=== PATIENT | female | born 1955 | race Caucasian/White ===

== ENCOUNTER → 2017-07-22 16:26 | Outpatient (CLI) | payer OTHER, SELFPAY ==
--- NOTE | 2017-07-22 | MM_ITS ---
MM Dig screening mamm BI w/CAD CAD Screening COMPARISON: Digital mammograms 01/30/2010 INDICATION: There is no personal or family history of breast cancer. There has been a previous biopsy left breast. TECHNIQUE: Standard CC and MLO images were obtained. R2 CAD reviewed. FINDINGS: Scattered fiber glandular densities are seen in both breasts. There is a biopsy clip upper outer quadrant left breast. There are scattered benign-appearing calcination is in each breast. There is no suspicious lesion and there are no suspicious microcalcifications. IMPRESSION: Fibrofatty parenchyma no suspicious lesion seen BI-RADS Category: 2 Benign Finding(s) RECOMMENDED FOLLOW-UP: 1YR - 1 YEAR FOLLOW-UP (A letter has been sent to the patient regarding results of the study.)
== END ==
PROVIDERS: PCP Family Medicine; Visit Provider Family Medicine
DX: Z12.31 Encounter for screening mammogram for malignant neoplasm of breast (principal)
CPT/HCPCS: 77067

== ENCOUNTER → 2019-06-16 17:42 | Outpatient (CLI) | payer BC, SELFPAY ==
--- NOTE | 2019-06-16 17:52 | XR_ITS ---
PROCEDURE: XR HIP RT 2-3V W/PELVIS CLINICAL INDICATION: UNSTABLE RIGHT HIP Pain COMPARISON: No exams were available for comparison FINDINGS: No fracture or dislocation is evident. No significant degenerative change. No lytic or blastic change. Unremarkable soft tissues. IMPRESSION: No acute findings. Dictated by: Manuel Smith MD 06/16/2019 21:37 Electronically signed by Manuel Smith MD in [place] 06/16/2019 21:37
--- NOTE | 2019-06-16 17:52 | XR_ITS ---
PROCEDURE: XR LUMBAR SPINE MIN 4V CLINICAL INDICATION: ACUTE RIGHT SIDED LOW BACK PAIN Right-sided low back pain COMPARISON: CT ABDOMEN PELVIS WO CON from 11/24/2018 FINDINGS: Normal alignment. Multilevel degenerative disc disease from L1-S1. There is partial sacralization of L5. No fracture or dislocation. There is generalized vascular calcification. There is mild posterior angulation of the coccyx which could be due to an old injury and did appear to be present on a previous CT scan. There are facet arthritic changes and L3-L4 and L5 IMPRESSION: Degenerative changes, no acute finding. Dorsal angulation of the coccyx consistent with an old injury Dictated by: Manuel Smith MD 06/16/2019 21:36 Electronically signed by Manuel Smith MD in [place] 06/16/2019 21:36
== END ==
PROVIDERS: PCP Nurse Practitioner Family; Visit Provider Nurse Practitioner Family
DX: M54.41 Lumbago with sciatica, right side (principal); M25.351 Other instability, right hip
CPT/HCPCS: 72110; 73502

== ENCOUNTER → 2019-06-20 10:55 | Outpatient (CLI) | payer BC, SELFPAY ==
[2019-06-20 11:41] LABS: Chloride 94 mmol/L (98-107); Potassium 4.4 mmoL/L (3.5-5.1); Sodium 131 mmol/L (136-145)
[2019-06-20 11:44] LABS: Alanine Aminotransferase 32 U/L (12-78); Albumin Level 3.9 g/dl (3.5-5.0); Albumin/Globulin Ratio 1.3 (1.1-1.8); Alkaline Phosphatase 69 U/L (38-126); Anion Gap 14.4 mEq/L (5-15); Aspartate Amino Transferase 19 U/L (14-36); Bilirubin,Total 0.9 mg/dl (0.2-1.3); Blood Urea Nitrogen 26 mg/dl (7-17); Carbon Dioxide 27 mmol/L (22.0-30.0); Estimated Glomerular Filt Rate 56 ml/min (>60); GFR (African American) 68 ML/MIN (>60); Globulin 3.1 g/dL (1.3-3.2)
[2019-06-20 11:45] LABS: Calcium 9.5 mg/dl (8.4-10.2); Glucose 223 mg/dl (74-100)
[2019-06-20 12:41] LABS: Basophils % 1.1 % (0.1-2.0); Eosinophils % 0.2 % (0.1-12.0); Hematocrit 43.3 % (37.0-47.0); Mean Corpuscular HGB Conc 32.3 g/dL (31.8-35.4); Mean Corpuscular Hemoglobin 31.1 pg (27.0-31.2); Mean Corpuscular Volume 96.4 fl (81-99); Mean Platelet Volume 7.3 fl (7.4-10.4); Monocytes % 7.7 % (1.7-9.3); Platelet Count 303 K/mm3 (142-424); Red Blood Count 4.49 M/mm3 (4.20-5.40); Red Cell Distribution Width 14.2 % (11.5-17.5); White Blood Count 9.5 K/mm3 (4.8-10.8)
[2019-06-20 12:42] LABS: Basophils # 0.1 K/mm3 (0-0.2); Lymphocytes # 0.9 K/mm3 (0.7-4.5); Monocytes # 0.7 K/mm3 (0.1-1.0); Neutrophils # 7.8 K/mm3 (1.8-7.8)
[2019-06-22 10:59] LABS: Hemoglobin A1C 6.9 % (4.0-6.0)
== END ==
PROVIDERS: Visit Provider Nurse Practitioner Family
DX: N12 Tubulo-interstitial nephritis, not specified as acute or chronic (principal)
CPT/HCPCS: 36415; 80053; 83036; 85025

== ENCOUNTER → 2019-07-20 08:08 | Outpatient (CLI) | payer BC, SELFPAY ==
--- NOTE | 2019-07-20 08:08 | CT_ITS ---
PROCEDURE: CT ABDOMEN PELVIS WO CON CLINICAL INDICATION: NEPHROLITHIASIS Right flank pain, history of kidney stones COMPARISON: CT ABDOMEN PELVIS WO CON from 11/24/2018 TECHNIQUE: Axial images obtained with sagittal and coronal reformats. All CT scans at the facility use one or more dose reduction, viz: automated exposure control, ma/kV adjustment per patient size (including targeted exams where dose is matched to indication, i.e. head), or iterative reconstruction technique. FINDINGS: LOWER THORAX: There is a stable 6 mm nodule in the right middle lobe. Calcified nodule is present in the right lower lobe with underlying fibrotic changes/scarring. Coronary artery calcifications present ABDOMEN & PELVIS:There is mild thickening of the distal esophagus which is nonspecific. The the the liver, spleen, adrenal glands, and pancreas have an unremarkable unenhanced CT appearance. There are nonobstructing bilateral renal calculi measuring up to 5 mm in the lower pole on the right and 8 mm in the lower pole on the left. There is a 5 mm stone at the right ureterovesical junction with mild right-sided hydronephrosis and hydroureter. There are multiple pelvic phleboliths present. No evidence of appendicitis. Scattered diverticula are present throughout the colon. No evidence of diverticulitis. No pelvic mass or abnormal fluid collection. There is mild dilatation of the mid abdominal aorta at 2.2 cm. There is scattered small nodes in the retroperitoneum There is subcortical sclerosis involving the femoral heads on both sides right more extensive limb left having a somewhat geographic pattern consistent with avascular necrosis of the femoral heads IMPRESSION: 1. 8 mm right ureterovesical junction stone with mild right-sided obstructive uropathy 2. Bilateral nephrolithiasis 3. Bilateral avascular necrosis of the hips 4. Colonic diverticulosis without diverticulitis Dictated by: Manuel Smith MD 07/20/2019 14:59 Electronically signed by Manuel Smith MD in [place] 07/20/2019 14:59
== END ==
PROVIDERS: PCP Nurse Practitioner Family; Visit Provider Urology
DX: N20.0 Calculus of kidney (principal)
CPT/HCPCS: 74176

== ENCOUNTER → 2019-07-25 14:25 | Outpatient (CLI) | payer BC, SELFPAY ==
--- NOTE | 2019-07-25 14:29 | XR_ITS ---
PROCEDURE: XR KUB CLINICAL INDICATION: URETERAL STONE Right-sided abdominal pain COMPARISON: CT ABDOMEN PELVIS WO CON from 07/20/2019 FINDINGS: There are bilateral renal calculi measuring up to 3 mm in the lower pole on the right and 9 mm in the lower pole on the left. There are multiple bilateral lower pelvic calcifications noted most of which are felt to be due to phleboliths. The cannot exclude the possibility of a persistent ureteral calculus on the right due to multiple overlying calcifications. The there are degenerative changes in the lumbar spine and SI joints. IMPRESSION: Bilateral nephrolithiasis with bilateral pelvic calcification. Cannot exclude a distal ureteral stone on the right as there are multiple calcifications in this region Dictated by: Manuel Smith MD 07/25/2019 15:14 Electronically signed by Manuel Smith MD in [place] 07/25/2019 15:14
== END ==
PROVIDERS: PCP Family Medicine; Visit Provider Urology
DX: N20.1 Calculus of ureter (principal)
CPT/HCPCS: 74018

== ENCOUNTER → 2019-08-11 08:12 | Outpatient (CLI) | payer BC, SELFPAY ==
[2019-08-11 08:51] LABS: Basophils % 0.4 % (0.1-2.0); Eosinophils # 0.2 K/mm3 (0.0-0.4); Eosinophils % 4.6 % (0.1-12.0); Hematocrit 38.9 % (37.0-47.0); Lymphocytes # 2.2 K/mm3 (0.7-4.5); Lymphocytes % 42.3 % (10-50); Mean Corpuscular HGB Conc 33.4 g/dL (31.8-35.4); Mean Corpuscular Hemoglobin 32.8 pg (27.0-31.2); Mean Corpuscular Volume 98.2 fl (81-99); Mean Platelet Volume 7.9 fl (7.4-10.4); Monocytes # 0.3 K/mm3 (0.1-1.0); Monocytes % 6.5 % (1.7-9.3); Neutrophils # 2.3 K/mm3 (1.8-7.8); Neutrophils % 46.2 % (37.0-80.0); Platelet Count 235 K/mm3 (142-424); Red Blood Count 3.96 M/mm3 (4.20-5.40); Red Cell Distribution Width 15.1 % (11.5-17.5); White Blood Count 5.1 K/mm3 (4.8-10.8)
[2019-08-11 09:47] LABS: Anion Gap 12.6 mEq/L (5-15); Blood Urea Nitrogen 19 mg/dl (7-17); Calcium 9.7 mg/dl (8.4-10.2); Carbon Dioxide 29 mmol/L (22.0-30.0); Chloride 102 mmol/L (98-107); Estimated Glomerular Filt Rate 85 ml/min (>60); GFR (African American) 103 ML/MIN (>60); Glucose 122 mg/dl (74-100); Potassium 4.6 mmoL/L (3.5-5.1); Sodium 139 mmol/L (136-145)
[2019-08-11 10:03] LABS: Coronavirus 19 IgG Antibody Negative (Negative); Coronavirus 19 IgM Antibody Negative (Negative)
== END ==
PROVIDERS: Visit Provider Urology
DX: Z01.84 Encounter for antibody response examination (principal); Z01.818 Encounter for other preprocedural examination
CPT/HCPCS: 36415; 80048; 85025; 86328

== ENCOUNTER 2019-08-14 07:07 | Day surgery (SDC) | payer BC, SELFPAY ==
[2019-08-09 11:08] VITALS: BMI 32.5
[2019-08-14] VITALS (13 sets, daily range): BP systolic 123–152; BP diastolic 60–85; PULSE 51–73; RESP 14–24; TEMP 36–36.7; O2SAT 92–100
[2019-08-14 07:46] LABS: POC Glucose,Bedside 122 (70-110)
--- NOTE | 2019-08-14 07:52 | P.PN_ITS ---
[facility] Anesthesia Checklist - Patient Identification Patient Identification: Arm Band, Verbal (Name & ) - Structural Data Admitted From: Home Planned Operative Procedure/s: Bilateral ureteroscopy, stone extraction, holmium laser Consent for Planned Operative Procedure(s) Verified: Yes Verified Documents: Surgical Consent, History and Physical - NPO Status Verified Time NPO: 22:30 - Chart Verification Results Verified: CBC, BMP, UA - Additional verifications Anesthesia Reactions: No Hx Blood Transfusions: No Blood Transfusion Reaction: No - Airway Assessment C-Spine Mobility Assessed: Yes TMJ Mobility Assessed: Yes Dentition: Poor Dentition (missing) - Neurological Assessment Level of Consciousness: Awake, Alert, Appropriate, Follows Commands Hx Seizures: No Numbness or tingling in extremities: No - Anesthesia Plan Anesthesia Risk discussed: Yes Anesthesia Plan: Verified ASA Class: III Anesthesia Type: General [facility] History I have reviewed the patient's past medical history: Yes Medical History: Reports:: Anxiety, Deep Vein Thrombosis, Diabetes Mellitus Type 2, Hyperlipidemia, Hypertension Denies:: Cancer, Depression, Diabetes Mellitus Type 1, Internal Pacemaker, Migraine, MRSA, Seizures *Have you ever received a pneumonia vaccine?: No *Have you received a flu vaccine this season?: No Other Medical History: Reports: Arthritis, Sinus Problems. Denies: Blood Transfusion Reaction Anesthesia experience/problems:: None Laterality Cases: Left: Breast Biopsy Other Surgeries: Yes: Tubal Ligation, Other. No: Pacemaker Amputation: No Fractures: No - *Social History Educational Level: Attended College Smoking Status: Current every day smoker Tobacco Type: cigarettes # Packs/Day (cigarettes): 1 Alcohol Intake: never Alcohol Intake Frequency:: other Substance Use Type: denies use *Occupational Status:: employed Housing: house Household Members: spouse *Travel in the last 8 weeks: None - Psychiatric History Pschychiatric History:: Reports:: Anxiety Denies:: Depression Family Hx:: Anemia, Cancer, Coronary Artery Disease, Diabetes, Hyperlipidemia, Hypertension, Kidney Disease, Mental illness
--- NOTE | 2019-08-14 10:30 | FL_ITS ---
PROCEDURE: FLUORO UP TO 1 HOUR CLINICAL INDICATION: URETEROSCOPY WITH STENT PLACEMENT IN OR COMPARISON: XR KUB from 07/25/2019 FINDINGS: Fluoroscopy time: 1 minutes and 46 seconds A single images submitted showing a stent in place with the proximal aspect overlying the right upper quadrant IMPRESSION: Status post stent placement with C-arm guidance Dictated by: Manuel Smith MD 08/14/2019 17:44 Electronically signed by Manuel Smith MD in [place] 08/14/2019 17:44
--- NOTE | 2019-08-14 10:41 | HMH.ANESI ---
[facility] Anesthesia Record Part I Intake, IV Amount: 900 Estimated blood loss (mL): 10 Urine output (mL): 0 Blood Products used (#): none Blood Pressure: 123/64 SaO2: 93 Pulse Rate: 62 Respiratory Rate: 18 Temperature: 98.0 F Patient is:: Drowsy, Stable Stable to PACU at:: 10:38
--- NOTE | 2019-08-14 11:36 | HMH.ANESII ---
[facility] Anesthesia Record Part II Discharge Time: 11:08 Destination: Surgical Day Care (OP Surgery) PACU nurse assessment reviewed?: Yes Patient Condition:: Good Anesthesia Complications:: None Swallowing reflex intact?: Yes Cyanosis?: No Blood Pressure: 152/80 Pulse Rate: 51 Temperature: 97.6 F Mental Status: Alert & Oriented Pain level:: 0 Nausea and/or vomitting:: None Intake, IV Amount: 25
[2019-08-14 11:49] LABS: POC Glucose,Bedside 103 (70-110)
--- NOTE | 2019-08-14 16:45 | HMH.OPNOTE ---
Date of procedure: 08/14/19 Pre-op Diagnosis:: Right distal ureteral stone and left proximal ureteral stone Post-op Diagnosis:: Same Procedure performed:: Right ureteroscopy, laser lithotripsy, stone extraction and right stent placement. Left ureteroscopy and stone extraction Surgeon:: Bubba Vee MD [employer] ORIGINATOR:: Arsenio Holden Anesthesia: GETA Estimated blood loss (mL): 0 Clinical Note:: Patient with history of a recurring urinary tract infections. She has persistent right distal ureteral stone and left proximal ureteral stone and it is believed that the stones are creating a recurrent infections she presents for definitive management today. Operative findings:: Impacted right distal ureteral stone and small left proximal ureteral stone Operative note:: Patient taken to the operating room after informed consent was obtained. She was placed on the operating table in the supine position and general anesthesia administered. Preoperative antibiotics and sequential compression devices placed. She was then placed into the dorsal lithotomy position prepped draped in the standard surgical fashion. The 22 Den passed into the urethra and into the bladder. The bladder was examined in a systematic fashion there is no evidence of mucosal abnormalities stones diverticula or trabeculation. The right trigone seems a little swollen. A guidewire was passed through the scope and into the right ureteral orifice but there was some resistance passing it by the offending stone. After some manipulation we were able to slide it by the stone into the right renal pelvis noted under fluoroscopy. The cystoscope removed and the right distal ureter appeared small so it was dilated with the 4 x 15 UroMax balloon dilator to 12 delon for 2 minutes. Balloon then deflated and removed and our semirigid ureteroscope passed into the bladder and into the right ureter and up to the distal stone. Stone was impacted against the lateral wall and could not be removed in 1 piece. We then used a 200 nm laser fiber to pass through the scope and the stone was broken up into several small fragments and the stone basket was used to remove all the smaller stone fragments. All stone was removed. Due to the impaction and swelling at that point I thought it best to place a ureteral stent and a 6 x 24 [place] stent was passed over the guidewire and the guidewire removed. We then turned our attention to the patient's left side and the guidewire was passed into the left ureter with use of the cystoscope. The cystoscope removed and the ureteroscope was replaced and into the left ureteral orifice. There were a couple small calculi in the left distal ureter these were removed with the basket. Passed the stone all the way proximally to the kidney and a couple more small stones were noted in the left proximal ureter and these were extracted with the basket as well. The scope was removed and I did not feel a need to place a stent on the left side. Bladder was drained. The patient tolerated procedure well no complications. She is discharged to recovery in stable condition. Condition: stable Disposition: PACU Specimens:: Stones were evacuated into the bladder and none were sent off as a specimen. Complications:: None
== END 2019-08-14 11:55 | disposition home or self-care (01) ==
LOC: OR 07:11
PROVIDERS: PCP Family Medicine; Visit Provider Urology
PROC: (CPT 52352; principal; 2019-08-14 09:00)
DX: N20.1 Calculus of ureter (principal); E78.5 Hyperlipidemia, unspecified; I10 Essential (primary) hypertension; E10.9 Type 1 diabetes mellitus without complications; F41.9 Anxiety disorder, unspecified; Z79.82 Long term (current) use of aspirin; Z79.51 Long term (current) use of inhaled steroids; Z79.899 Other long term (current) drug therapy; I82.409 Acute embolism and thrombosis of unspecified deep veins of unspecified lower extremity
CPT/HCPCS: 52356; 76000; 82962; 96374; C2617; J2405; J2710; Q9967

== ENCOUNTER → 2019-08-18 11:03 | Outpatient (CLI) | payer BC, SELFPAY ==
--- NOTE | 2019-08-18 11:19 | XR_ITS ---
PROCEDURE: XR KUB CLINICAL INDICATION: ureteral stone COMPARISON: CT ABDOMEN PELVIS WO CON from 07/20/2019 FINDINGS: There are few mildly dilated loops of small bowel right upper abdomen. There is minimal scattered stool in the visualized portion of the transverse colon. There is a right ureteral stent in place. There is a calcification lying immediately adjacent to the distal stent near the pigtail likely representing the stone seen at the UV junction on the recent CT scan abdomen and pelvis 07/20/2019. The right renal shadow is obscured by overlying large and small bowel gas but a tiny calculus likely remains in the mid pole. There appear to be 2-3 small calculi overlying the lower pole of the left renal shadow. There are tiny calcifications likely phleboliths left side of the pelvis. IMPRESSION: Bilateral renal calculi and probable persistent distal right ureteral calculus Dictated by: Dr. Arsh Goldsmith MD 08/18/2019 13:[address] Arsh Goldsmith MD in [place] 08/18/2019 13:14
== END ==
PROVIDERS: PCP Family Medicine; Visit Provider Urology
DX: N20.1 Calculus of ureter (principal)
CPT/HCPCS: 74018; 87086; 87088; 87186

== ENCOUNTER → 2019-08-18 12:34 | Outpatient (CLI) | payer BC, SELFPAY | PROVIDERS: Visit Provider Urology | DX: N39.0 Urinary tract infection, site not specified (principal) | CPT/HCPCS: 87086; 87088; 87186 ==

== ENCOUNTER 2019-08-18 19:22 | Emergency (ER) | payer OTHER, SELFPAY ==
[2019-08-18 19:25] VITALS: BMI 32.3
--- NOTE | 2019-08-18 19:25 | PC.NURSE ---
placed in ccollar.gown placed on patient.
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
[2019-08-18 19:30] VITALS: BP 101/72; PULSE 115; RESP 16; TEMP 36.8; O2SAT 95; BMI 32.3
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
[2019-08-18 19:51] LABS: Basophils % 0.2 % (0.1-2.0); Eosinophils # 0.1 K/mm3 (0.0-0.4); Eosinophils % 0.8 % (0.1-12.0); Hematocrit 35.3 % (37.0-47.0); Hemoglobin 12.3 g/dL (12.2-16.2); Lymphocytes # 1.4 K/mm3 (0.7-4.5); Lymphocytes % 19.8 % (10-50); Mean Corpuscular Hemoglobin 33.2 pg (27.0-31.2); Mean Corpuscular Volume 94.9 fl (81-99); Monocytes # 0.9 K/mm3 (0.1-1.0); Monocytes % 12.7 % (1.7-9.3); Neutrophils # 4.7 K/mm3 (1.8-7.8); Neutrophils % 66.5 % (37.0-80.0); Platelet Count 239 K/mm3 (142-424); Red Blood Count 3.72 M/mm3 (4.20-5.40); Red Cell Distribution Width 14.9 % (11.5-17.5)
[2019-08-18 19:52] LABS: Alanine Aminotransferase 25 U/L (12-78); Albumin Level 4.2 g/dl (3.5-5.0); Albumin/Globulin Ratio 1.2 (1.1-1.8); Alkaline Phosphatase 76 U/L (38-126); Anion Gap 13.4 mEq/L (5-15); Aspartate Amino Transferase 39 U/L (14-36); Bilirubin,Total 0.6 mg/dl (0.2-1.3); Blood Urea Nitrogen 28 mg/dl (7-17); Calcium 9.7 mg/dl (8.4-10.2); Carbon Dioxide 27 mmol/L (22.0-30.0); Chloride 94 mmol/L (98-107); Creatinine Clearance Estimated 76 mL/min (50-200); Estimated Glomerular Filt Rate 50 ml/min (>60); GFR (African American) 61 ML/MIN (>60); Globulin 3.6 g/dL (1.3-3.2); Glucose 138 mg/dl (74-100); Potassium 3.4 mmoL/L (3.5-5.1); Sodium 131 mmol/L (136-145); Total Protein,Serum 7.8 g/dl (6.3-8.2)
[2019-08-18 20:00] VITALS: BP 99/70; PULSE 115; RESP 16; O2SAT 96
--- NOTE | 2019-08-18 20:22 | PC.NURSE ---
return to room via trade sales assistant. placed back on monitor
--- NOTE | 2019-08-18 20:24 | PC.NURSE ---
ice pack placed to face. pain medicine offered. pt requests toradol.
[2019-08-18 20:30] VITALS: BP 107/74; PULSE 110; O2SAT 96
[2019-08-18 20:45] VITALS: BP 121/85; PULSE 109; O2SAT 97
[2019-08-18 21:05] VITALS: BP 111/73; PULSE 100; RESP 16; TEMP 36.8; O2SAT 97
== END 2019-08-18 21:14 | disposition home or self-care (01) ==
PROVIDERS: Emergency Provider Emergency Medicine; PCP Family Medicine
DX: S02.2XXA Fracture of nasal bones, initial encounter for closed fracture (principal); S63.501A Unspecified sprain of right wrist, initial encounter; V48.5XXA Car driver injured in noncollision transport accident in traffic accident, initial encounter; Y92.488 Other paved roadways as the place of occurrence of the external cause; F17.210 Nicotine dependence, cigarettes, uncomplicated; Z88.8 Allergy status to other drugs, medicaments and biological substances; I10 Essential (primary) hypertension; F41.9 Anxiety disorder, unspecified; E11.9 Type 2 diabetes mellitus without complications; Z79.899 Other long term (current) drug therapy
CPT/HCPCS: 29125; 70450; 70486; 71045; 72125; 72170; 73110; 73130; 80053; 85025; 96374; 96375; 99284

== ENCOUNTER 2019-08-24 08:53 | Outpatient (CLI) | payer BC, SELFPAY ==
[2019-08-24 09:03] VITALS: BP 124/78; PULSE 75; RESP 18; TEMP 36.4; O2SAT 97
[2019-08-24 09:55] VITALS: BP 138/81; PULSE 74; RESP 18; O2SAT 95
== END 2019-08-24 09:55 | disposition home or self-care (01) ==
LOC: INF 08:53
PROVIDERS: Visit Provider Family Medicine
DX: N39.0 Urinary tract infection, site not specified (principal)
CPT/HCPCS: 96365; J1335

== ENCOUNTER 2019-08-25 09:05 | Outpatient (CLI) | payer BC, SELFPAY ==
[2019-08-25 09:25] VITALS: BP 117/76; PULSE 70; RESP 18; TEMP 36.4
[2019-08-25 09:55] VITALS: BP 120/76; PULSE 69; RESP 18
== END 2019-08-25 10:25 | disposition home or self-care (01) ==
LOC: INF 09:17
PROVIDERS: Visit Provider Family Medicine
DX: N39.0 Urinary tract infection, site not specified (principal)
CPT/HCPCS: 96365; J1335

== ENCOUNTER → 2019-08-26 07:50 | Outpatient (CLI) | payer BC, SELFPAY ==
[2019-08-26 08:20] VITALS: BP 91/69; PULSE 88; RESP 16; TEMP 36.5; O2SAT 96
[2019-08-26 08:55] VITALS: BP 132/77; PULSE 85; RESP 16; TEMP 36.8; O2SAT 99
== END ==
PROVIDERS: PCP Family Medicine; Visit Provider Family Medicine
DX: N39.0 Urinary tract infection, site not specified (principal)
CPT/HCPCS: 96365; G0463; J1335

== ENCOUNTER → 2019-08-27 07:56 | Outpatient (CLI) | payer BC, SELFPAY ==
[2019-08-27 08:05] VITALS: BP 107/70; PULSE 79; RESP 16; TEMP 36.6; O2SAT 97
[2019-08-27 08:35] VITALS: BP 97/67; PULSE 79; RESP 16; TEMP 36.5; O2SAT 95
== END ==
PROVIDERS: PCP Family Medicine; Visit Provider Family Medicine
DX: N39.0 Urinary tract infection, site not specified (principal)
CPT/HCPCS: 96365; G0463; J1335

== ENCOUNTER 2019-08-28 09:00 | Outpatient (CLI) | payer BC, SELFPAY ==
[2019-08-28 09:08] VITALS: BP 118/79; PULSE 77; RESP 18; TEMP 36.4; O2SAT 97
[2019-08-28 09:45] VITALS: BP 122/76; PULSE 74; RESP 18; TEMP 36.6; O2SAT 96
== END 2019-08-28 09:45 | disposition home or self-care (01) ==
LOC: INF 09:00
PROVIDERS: Visit Provider Family Medicine
DX: N39.0 Urinary tract infection, site not specified (principal)
CPT/HCPCS: 96365; J1335

== ENCOUNTER 2019-08-29 08:43 | Outpatient (CLI) | payer BC, SELFPAY ==
[2019-08-29 08:57] VITALS: BP 100/79; PULSE 76; RESP 18; TEMP 36.3; O2SAT 97
[2019-08-29 09:40] VITALS: BP 118/74; PULSE 74; RESP 16; TEMP 36.6; O2SAT 97
== END 2019-08-29 09:45 | disposition home or self-care (01) ==
LOC: INF 08:43
PROVIDERS: Visit Provider Family Medicine
DX: N39.0 Urinary tract infection, site not specified (principal)
CPT/HCPCS: 96365; J1335

== ENCOUNTER 2019-08-30 08:58 | Outpatient (CLI) | payer BC, SELFPAY ==
[2019-08-30 09:10] VITALS: BP 122/81; PULSE 78; RESP 18; TEMP 36.2; O2SAT 96
[2019-08-30 10:10] VITALS: BP 117/78; PULSE 79; RESP 18; O2SAT 95
== END 2019-08-30 10:10 | disposition home or self-care (01) ==
LOC: INF 08:58
PROVIDERS: Visit Provider Family Medicine
DX: N39.0 Urinary tract infection, site not specified (principal)
CPT/HCPCS: 96365; J1335

== ENCOUNTER → 2019-09-18 16:45 | Outpatient (CLI) | payer BC, SELFPAY | PROVIDERS: Visit Provider Urology | DX: N39.0 Urinary tract infection, site not specified (principal) | CPT/HCPCS: 87086; 87088; 87186 ==

== ENCOUNTER → 2019-10-12 15:02 | Outpatient (CLI) | payer BC, SELFPAY | PROVIDERS: Visit Provider Urology | DX: N39.0 Urinary tract infection, site not specified (principal) | CPT/HCPCS: 87086; 87088; 87186 ==

== ENCOUNTER 2023-11-22 09:50 | Outpatient (CLI) | payer MEDICARE, SELFPAY ==
--- NOTE | 2023-11-22 09:52 | MM_ITS ---
PROCEDURE INFORMATION: Exam: MG Bilateral Screening 3D Mammography Exam date and time: 11/22/2023 9:46 AM Age: 68 years old Clinical indication: Screening examination TECHNIQUE: Imaging protocol: Bilateral Screening tomosynthesis and 2D mammography including computer-aided detection (CAD) when performed. COMPARISON: 1. MG SCBI MM Dig screening mamm BI w/CAD 07/22/2017 4:40 PM 2. MG DMSB DIGITAL MAMM-SCREEN BILATERAL 01/30/2010 8:54 AM FINDINGS: MAMMOGRAPHY: Breast composition: There are scattered areas of fibroglandular density. Mass: No suspicious masses. Architectural distortion: None. Calcifications: No suspicious calcifications. Asymmetric density: None. Skin thickening: None. Axillary adenopathy: None. IMPRESSION: No mammographic evidence of malignancy. Annual screening is recommended unless otherwise clinically indicated. ASSESSMENT: BI-RADS Category 1: Negative.
== END 2023-11-22 23:59 | disposition home or self-care (01) ==
LOC: RAD 09:50
PROVIDERS: PCP Nurse Practitioner; Visit Provider Nurse Practitioner
DX: Z12.31 Encounter for screening mammogram for malignant neoplasm of breast (principal)
CPT/HCPCS: 77063; 77067

== ENCOUNTER 2024-06-05 07:51 | Outpatient (CLI) | payer MEDICARE, SELFPAY ==
--- NOTE | 2024-06-05 07:53 | XR_ITS ---
FINAL REPORT CLINICAL HISTORY: Foot Pain post fall COMPARISON: None FINDINGS: RIGHT FOOT 3 views of the right foot were obtained. There is no acute fracture or dislocation. There is a small plantar spur. A small joint effusion is noted. Moderately advanced hypertrophic changes are seen at the first MTP. Soft tissues are unremarkable. IMPRESSION: Chronic changes and small joint effusion without acute bony abnormality identified. Reviewed, Interpreted and Dictated by Steve Kovacs MD Transcribed by Gavi Reinoso Authenticated and [facility]
--- NOTE | 2024-06-05 07:53 | XR_ITS ---
FINAL REPORT CLINICAL HISTORY: Foot Pain post fall COMPARISON: None FINDINGS: LEFT FOOT Three views of the left foot demonstrate no acute fracture or dislocation. The visualized joint spaces are normally aligned. There is a small plantar spur. A small joint effusion is noted. IMPRESSION: Small joint effusion without acute bony abnormality. Reviewed, Interpreted and Dictated by Steve Kovacs MD Transcribed by Gavi Reinoso Authenticated and [facility]
--- OUTSIDE RECORDS SUMMARY | 2024-06-08 20:04 | XMS_ITS ---
Author Organization Unknown [facility] Start Date Provider Encounter for Check-up [id number] NADIRA Vizcarra
== END 2024-06-05 23:59 | disposition home or self-care (01) ==
LOC: RAD 07:52
PROVIDERS: PCP Family Medicine; Visit Provider Podiatrist
DX: M79.671 Pain in right foot (principal); M79.672 Pain in left foot
CPT/HCPCS: 73630

== ENCOUNTER 2024-06-15 09:00 | Outpatient (CLI) | payer MEDICARE, SELFPAY ==
--- NOTE | 2024-06-15 | US_ITS ---
FINAL REPORT CLINICAL HISTORY: Smoker, HTN, DM, HLD, FINDINGS: BILATERAL ANKLE BRACHIAL INDICES Pressure indices are as follows are: RIGHT LOWER EXTREMITY Ankle brachial pressure index: 1.1 Toe brachial pressure index: 0.8 COMMENTS: Normal LEFT LOWER EXTREMITY Ankle brachial pressure index: 1.1 Toe brachial pressure index: 0.9 COMMENTS: Normal IMPRESSION: No evidence of significant obstructive peripheral vascular disease of the lower extremities. Reviewed, Interpreted and Dictated by Steve Kovacs MD Transcribed by Rebecca Gorman Authenticated and [facility]
== END 2024-06-15 23:59 | disposition home or self-care (01) ==
LOC: RT 09:00
PROVIDERS: PCP Family Medicine; Visit Provider Podiatrist
DX: E11.51 Type 2 diabetes mellitus with diabetic peripheral angiopathy without gangrene (principal); R09.89 Other specified symptoms and signs involving the circulatory and respiratory systems
CPT/HCPCS: 93923

== ENCOUNTER 2024-07-11 10:05 | Day surgery (SDC) | payer MEDICARE, SELFPAY ==
[2024-07-07 16:51] VITALS: BMI 34.7
[2024-07-11] VITALS (10 sets, daily range): BP systolic 103–145; BP diastolic 55–92; PULSE 72–99; RESP 16–18; TEMP 36.3–36.6; O2SAT 92–99
--- NOTE | 2024-07-11 10:20 | EXP.GEN.HP ---
HPI HPI HPI: This is a 69-year-old female who presents for colonoscopy. She has never had a colonoscopy. She reports a recent Cologuard study was positive and a recent Hemoccult study was positive. She has not noticed melena or bright red blood per rectum. No hematemesis. No unexpected weight loss. [facility] Disclaimer: The information contained in this section may have been updated after the patient was seen, as this information can be updated by other users. Medical History (Updated 07/11/24 @ 10:21 by Ashish Ro MD) Anxiety Hypertension Depression Diabetes Surgical History (Updated 07/07/24 @ 16:48 by Kierra Hannah RN) No significant past surgical history Family History (Updated 07/07/24 @ 16:48 by Kierra Hannah RN) Colon cancer Father Social History (Updated 07/07/24 @ 16:47 by Kierra Hannah RN) Smoking Status: Current every day smoker tobacco type: cigarettes packs per day: 1 second hand exposure: Yes alcohol intake: never substance use type: denies use current occupational status: employed Travel in the last 8 weeks?: None household members: spouse housing: house current occupational exposures/hazards: No caffeine: Yes Have you lived/traveled outside US in past 30 days?: No Contact w/someone who lives/traveled outside US past 30 days?: No Exposure to someone with infectious disease in past 14 days?: No Do you have a fever (greater than 100.4 F or 38 C)?: No Have you tested positive for COVID-19?: No Exposed to someone with COVID-19 in past 14 days?: No Do you have a sore throat?: No Do you have a cough?: No Do you have any weakness?: No Do you have any diarrhea?: No Are you experiencing any unusual bleeding?: No Do you have any muscle aches/pain?: No Do you have any abdominal pain?: No Are you experiencing loss of taste or smell?: No Other Medical History Have you received the Flu Vaccine for this season: Yes Have you received the Pneumonia Vaccine: No Review of Systems Review of Systems Review of systems:: pertinent systems reviewed and negative unless documented below Meds Home Medications and Allergies Home Medications ?Medication ?Instructions ?Recorded ?Confirmed ?Type atorvastatin 40 mg tablet (Lipitor) 40 mg PO ONCE Cholesterol 07/28/17 07/11/24 History metoprolol tartrate 25 mg tablet 25 mg PO BID blood pressure 07/28/17 07/11/24 History sertraline 50 mg tablet (Zoloft) 50 mg PO Q24H Depression 07/28/17 07/11/24 History alprazolam 0.5 mg tablet (Xanax) 0.5 mg PO DAILY Anxiety 10/25/17 07/11/24 History metformin 500 mg tablet 500 mg PO DAILY Diabetes 08/09/19 07/11/24 History diclofenac sodium 1 % topical gel 4 g topical QID PRN pain 30 days 06/13/24 07/11/24 Rx #100 grams finerenone 10 mg tablet (Kerendia) 10 mg PO DAILY 07/11/24 07/11/24 History New Prescriptions to Start Prescriptions: Allergies Allergy/AdvReac Type Severity Reaction Status Date / Time losartan AdvReac Intermediate Hypotension Verified 07/11/24 10:21 codeine AdvReac Nausea Verified 07/11/24 10:21 Exam Data for Last 24 hours I & O for Last 24 hours: Intake & Output 07/08/24 07/09/24 07/10/24 07/11/24 11:59 11:59 11:59 11:59 Weight 215 lb Constitutional Constitutional: no acute distress *Routine HEENT Exam Head: Present normocephalic Eye: Present EOMI ENT: Present mucous membranes moist *Routine Neck Exam Neck: Present full ROM *Routine Respiratory Exam Respiratory: Absent respiratory distress *Routine Cardiovascular Exam Cardiovascular: Absent tachycardia *Routine Abdominal Exam Abdominal: Present soft *Routine Rectal Exam Rectal:: deferred *Routine Genitalia Exam Genitalia:: deferred *Routine Extremities Exam Extremities: Present full ROM *Routine Skin Exam Skin: Absent erythema *Routine Neurological Exam Neurological: Present alert Assessment and Plan *Assessment and plan (1) Positive colorectal cancer screening using Cologuard test: Status: Acute Category: Medical Code(s): R19.5 - Other fecal abnormalities Plan: Colonoscopy today I have discussed the risks and benefits including, but not limited to: Bleeding Infection Damage to surrounding tissue Inherent risks of sedation The patient agrees to proceed.
--- NOTE | 2024-07-11 10:21 | HMH.SCOPE ---
Procedure: Date: 07/11/24 Patient Date of :: 1955 Procedure Performed:: Colonoscopy with polypectomy Indications:: Positive Cologuard Performing Provider:: Ashish Ro MD Referring Provider:: . Sedation:: Monitored anesthesia care Procedure:: After informed consent was obtained the patient was taken to the endoscopy suite. Sedation ensued after the patient was transferred to the left lateral decubitus position. Pulse, blood pressure, and oxygen saturation were monitored throughout the procedure. Digital rectal exam revealed no significant abnormality. The colonoscope was placed in position. The entire colon was evaluated. The colonoscope was carefully removed and the patient was transferred to recovery in stable condition. Please see findings and specimens below for detail. Findings:: Bowel preparation moderate to poor Profound spasticity/lack of relaxation Hemorrhoidal cushion/tags Scattered pandiverticulosis Focal scattered AVMs Multiple large complex polyps (see specimens) Very large sessile polyp around 65 cm not excised (deferred to the gastroenterology service). Tattoo placed just distal to this polyp. Specimens:: Complex lobulated sessile cecal polyp (cold snare) Large lobulated proximal right colon polyp (hot snare) Right colon polyp (cold snare) Hepatic flexure polyp (cold snare) --Note: This polyp was not retrieved as it was not visualized (limited prep/spasticity) Complex large lobulated adjacent polyps at 70 cm (hot and cold snare) Polyp at 60 cm (cold snare) Very large irregular/lobulated polyp at 55 cm (hot snare) Cluster of polyps at 10 cm (hot snare) Recommendations:: Short-term repeat colonoscopy deferred to the gastroenterology service secondary to very large sessile polyp around 65 cm that was not excised (tattoo placement), size/nature/number of polyps, and limited visualization. Complications:: No immediate Estimated blood obtained (mL): 1 Colonoscopy Component Colonoscopy Component Was a colonoscopy performed during today's procedure?: Yes Recommended follow up colonoscopy of at least 10 years?: No If no, follow up colonoscopy recommended in ___ years?: (See above) Reason for not recommending >/= 10 yr follow-up interval?: (See above)
[2024-07-11] MEDS: LACTATED RINGERS 1000ML 1,000 ML 50 ML IV (10:25)
--- NOTE | 2024-07-11 10:29 | EXP.ANES.CKL ---
[facility] Disclaimer: The information contained in this section may have been updated after the patient was seen, as this information can be updated by other users. Medical History (Updated 07/11/24 @ 10:21 by Ashish Ro MD) Anxiety Hypertension Depression Diabetes Surgical History (Updated 07/07/24 @ 16:48 by Kierra Hannah RN) No significant past surgical history Family History (Updated 07/07/24 @ 16:48 by Kierra Hannah RN) Father Colon cancer Social History (Updated 07/07/24 @ 16:47 by Kierra Hannah RN) Smoking Status: Current every day smoker tobacco type: cigarettes packs per day: 1 second hand exposure: Yes alcohol intake: never substance use type: denies use current occupational status: employed Travel in the last 8 weeks?: None household members: spouse housing: house current occupational exposures/hazards: No caffeine: Yes Have you lived/traveled outside [place] in past 30 days?: No Contact w/someone who lives/traveled outside US past 30 days?: No Exposure to someone with infectious disease in past 14 days?: No Do you have a fever (greater than 100.4 F or 38 C)?: No Have you tested positive for COVID-19?: No Exposed to someone with COVID-19 in past 14 days?: No Do you have a sore throat?: No Do you have a cough?: No Do you have any weakness?: No Do you have any diarrhea?: No Are you experiencing any unusual bleeding?: No Do you have any muscle aches/pain?: No Do you have any abdominal pain?: No Are you experiencing loss of taste or smell?: No [facility] Anesthesia Checklist Patient Identification Patient Identification: Arm Band Structural Data Admitted From: Home Planned Operative Procedure/s: Colonoscopy Consent for Planned Operative Procedure(s) Verified: Yes Verified Documents: Surgical Consent and History and Physical NPO Status Verified Time NPO: 06:30 (finished prep) Additional verifications Anesthesia Reactions: No Hx Blood Transfusions: No Blood Transfusion Reaction: No Airway Assessment Mallampati Score:: Class II C-Spine Mobility Assessed: Yes TMJ Mobility Assessed: Yes Dentition: Good Dentition Neurological Assessment Level of Consciousness: Awake, Alert and Appropriate Anesthesia Plan Anesthesia Risk discussed: Yes Anesthesia Plan: Verified ASA Class: II Anesthesia Type: MAC
[2024-07-11 11:50] LABS: POC Glucose,Bedside 193 (70-110)
== END 2024-07-11 13:35 | disposition home or self-care (01) ==
PROVIDERS: PCP Nurse Practitioner; Visit Provider Surgery
PROC: 0DJD8ZZ Inspection of Lower Intestinal Tract, Via Natural or Artificial Opening Endoscopic (ICD-10-PCS; CPT 45385; principal; 2024-07-11 11:00)
DX: R19.5 Other fecal abnormalities (principal); Z12.11 Encounter for screening for malignant neoplasm of colon; K64.9 Unspecified hemorrhoids; K55.20 Angiodysplasia of colon without hemorrhage; D12.2 Benign neoplasm of ascending colon; D12.0 Benign neoplasm of cecum; D12.4 Benign neoplasm of descending colon; D12.5 Benign neoplasm of sigmoid colon; K63.5 Polyp of colon; E11.9 Type 2 diabetes mellitus without complications
CPT/HCPCS: 45385; 82962; 88305; J2704; J7120

== ENCOUNTER 2024-11-06 07:35 | Day surgery (SDC) | payer MEDICARE, SELFPAY ==
--- NOTE | 2024-11-02 07:05 | P.HP_ITS ---
History of Present Illness *Admission Date: 11/06/24 *History of present illness: Mrs. Giles is a 69-year-old female who is here for screening colonoscopy secondary to a large advanced adenomatous polyp. She did have a colonoscopy with Dr. Ashish Ro M.D. on 07/11/2024 and procedure was performed because of a po sitive Cologuard. Her colonoscopy showed moderate to poor bowel preparation with spasticity and lack of relaxation. There were multiple complex polyps and a very large sessile polyp around 65 cm (presumably descending colon) as well as a lobulated sessile cecal polyp. Short-term colonoscopy was recommended and the polyp at 65 cm was not excised but rather tattooed. The examination is deemed medically necessary for screening colonoscopy. The patient has been seen, interviewed and examined prior to the procedure by both myself and the anesthesia provider. [facility] Disclaimer: The information contained in this section may have been updated after the patient was seen, as this information can be updated by other users. Medical History Anxiety Hypertension Depression Diabetes Surgical History History of colonoscopy Family History Father Colon cancer Social History Smoking Status: Current every day smoker tobacco type: cigarettes packs per day: 1 second hand exposure: Yes alcohol intake: never substance use type: denies use current occupational status: employed Travel in the last 8 weeks?: None household members: spouse housing: house current occupational exposures/hazards: No caffeine: Yes Have you lived/traveled outside US in past 30 days?: No Contact w/someone who lives/traveled outside US past 30 days?: No Exposure to someone with infectious disease in past 14 days?: No Do you have a fever (greater than 100.4 F or 38 C)?: No Have you tested positive for COVID-19?: No Exposed to someone with COVID-19 in past 14 days?: No Do you have a sore throat?: No Do you have a cough?: No Do you have any weakness?: No Do you have any diarrhea?: No Are you experiencing any unusual bleeding?: No Do you have any muscle aches/pain?: No Do you have any abdominal pain?: No Are you experiencing loss of taste or smell?: No Other Medical History Have you received the Flu Vaccine for this season: Yes Have you received the Pneumonia Vaccine: No Review of Systems Review of Systems Review of systems (narrative): Negative *Cardiovascular Comments: Negative *Gastrointestinal Comments: Negative *Genitourinary Comments: Negative *Musculoskeletal Comments: Negative *Neurologic Comments: Negative Meds Home Medications and Allergies Home Medications ?Medication ?Instructions ?Recorded ?Confirmed ?Type atorvastatin 40 mg tablet (Lipitor) 40 mg PO DAILY Cho lesterol 07/28/17 11/06/24 History metoprolol tartrate 25 mg tablet 25 mg PO BID blood pr essure 07/28/17 11/06/24 History sertraline 50 mg tablet (Zoloft) 50 mg PO Q24H Depress ion 07/28/17 11/06/24 History alprazolam 0.5 mg tablet (Xanax) 0.5 mg PO BIDP PRN An xiety 10/25/17 11/06/24 History metformin 500 mg tablet 500 mg PO DAILY Diabetes 12/1811/06/24 History diclofenac sodium 1 % topical gel 4 g topical QID PRN pain 30 days 06/13/24 11/06/24 Rx #100 grams finerenone 10 mg tablet (Kerendia) 10 mg PO DAILY 06/2911/06/24 History New Prescriptions to Start Prescriptions: Allergies Allergy/AdvReac Type Severity Reaction Status Date / Time losartan AdvReac Intermediate Hypotension Verified 11/02/24 16:15 codeine AdvReac Nausea Verified 11/02/24 16:15 Exam *Routine HEENT Exam Head: Present normocephalic Eye: Present EOMI and PERRL ENT: Present mucous membranes moist *Routine Neck Exam Neck: Present supple *Routine Respiratory Exam Respiratory: Present CTA bilaterally *Routine Cardiovascular Exam Cardiovascular: Present RRR *Routine Abdominal Exam Abdominal: Present soft and normoactive bowel sounds; Absent tenderness *Routine Rectal Exam Rectal:: deferred *Routine Genitalia Exam Genitalia:: deferred *Routine Extremities Exam Extremities: Absent cyanosis, clubbing or edema *Routine Skin Exam Skin: Present warm; Absent rash *Routine Neurological Exam Neurological: Present alert and oriented X3 Assessment and Plan *Assessment and plan (1) Tubular adenoma of colon: Status: Acute Category: Medical Code(s): D12.6 - Benign neoplasm of colon, unspecified (2) Positive colorectal cancer screening using Cologuard test: Status: Acute Category: Medical Code(s): R19.5 - Other fecal abnormalities (3) Adenomatous polyp of descending colon: Status: Acute Category: Medical Code(s): D12.4 - Benign neoplasm of descending colon Plan A/P: 1. Large complex adenomatous polyp of descending colon is the preprocedural diagnosis. The patient will be anesthetized/sedated using MAC sedation. The patient has been seen and examined. Cardiac and lung assessment prior to the examination is stable. Proceed with planned screening colonoscopy.
[2024-11-02 16:19] VITALS: BMI 35.5
[2024-11-06 07:52] VITALS: BP 125/87; PULSE 77; RESP 18; TEMP 36.1; O2SAT 94
[2024-11-06] MEDS: LACTATED RINGERS 1000ML 1,000 ML 50 ML IV (07:58)
[2024-11-06 08:05] LABS: POC Glucose,Bedside 117 gm/dL (70-110)
--- NOTE | 2024-11-06 08:11 | P.PNANES_ITS ---
[facility] Disclaimer: The information contained in this section may have been updated after the patient was seen, as this information can be updated by other users. Medical History Anxiety Hypertension Depression Diabetes Surgical History History of colonoscopy Family History Father Colon cancer Social History Smoking Status: Current every day smoker tobacco type: cigarettes packs per day: 1 second hand exposure: Yes alcohol intake: never substance use type: denies use current occupational status: employed Travel in the last 8 weeks?: None household members: spouse housing: house current occupational exposures/hazards: No caffeine: Yes Have you lived/traveled outside US in past 30 days?: No Contact w/someone who lives/traveled outside US past 30 days?: No Exposure to someone with infectious disease in past 14 days?: No Do you have a fever (greater than 100.4 F or 38 C)?: No Have you tested positive for COVID-19?: No Exposed to someone with COVID-19 in past 14 days?: No Do you have a sore throat?: No Do you have a cough?: No Do you have any weakness?: No Do you have any diarrhea?: No Are you experiencing any unusual bleeding?: No Do you have any muscle aches/pain?: No Do you have any abdominal pain?: No Are you experiencing loss of taste or smell?: No [facility] Anesthesia Checklist Patient Identification Patient Identification: Arm Band and Verbal (Name & ) Structural Data Admitted From: Home Planned Operative Procedure/s: colonoscopy Consent for Planned Operative Procedure(s) Verified: Yes NPO Status Verified Time NPO: 00:00 Chart Verification Results Verified: None Additional verifications Fingerstick Blood Glucose: 117 Anesthesia Reactions: No Hx Blood Transfusions: No Blood Transfusion Reaction: No Airway Assessment Mallampati Score:: Class II C-Spine Mobility Assessed: Yes TMJ Mobility Assessed: Yes Dentition: Good Dentition Neurological Assessment Level of Consciousness: Awake, Alert and Appropriate Hx Seizures: No Numbness or tingling in extremities: No Anesthesia Plan Anesthesia Risk discussed: Yes Anesthesia Plan: Verified ASA Class: II Anesthesia Type: MAC
--- NOTE | 2024-11-06 08:42 | HMH.PROCNOTE ---
[facility] Procedure Note Date: 11/06/24 Time: 09:23 Procedure Note:: Colonoscopy Procedure Report: Colonoscopy with cold snare polypectomy and cold biopsies and spot ink (tattoo) submucosal injection Endoscopist: Matteo Ramos II, MD Referring physician: Laurel VERDE Date of Procedure: November 06, 2024 Equipment: Olympus [id number] adult colonoscope Sedation: MAC sedation Indication: Mrs. Giles is a 69-year-old female who is here for screening colonoscopy secondary to a large advanced adenomatous polyp. She did have a colonoscopy with Dr. Ashish oR M.D. on 07/11/2024 and procedure was performed because of a positive Cologuard. Her colonoscopy showed moderate to poor bowel preparation with spasticity and lack of relaxation. There were multiple complex polyps and a very large sessile polyp around 65 cm (presumably descending colon) as well as a lobulated sessile cecal polyp. Short-term colonoscopy was recommended and the polyp at 65 cm was not excised but rather tattooed. The patient reports no abdominal pain, weight loss, change in her bowel habits or rectal bleeding. She does state that her father had colon cancer in his early 80s. Procedure: Prior to the procedure, a history and physical exam was performed, and patient's medications and allergies were reviewed. The risks, benefits and alternatives of the sedation and procedure were discussed with the patient. All questions were answered and informed consent was obtained. The patient was brought to the procedure room. Patient identification and proposed procedure were verified by the physician and the nurse. The patient was placed in a left lateral decubitus position and the scope was passed under direct vision. Throughout the procedure, the patient's blood pressure, pulse, and oxygen saturations were monitored continuously. The colonoscopy was accomplished without difficulty. The patient tolerated the procedure well. Findings: On digital rectal examination there was normal rectal tone. There were no external hemorrhoids. The colonoscope was introduced through the anal canal to the rectum and advanced to the cecum. The ileocecal valve and appendiceal orifice were identified. The scope was advanced a short distance into the ileum which appeared grossly normal. The scope was then withdrawn into the colon. There were multiple colon polyps (ascending x 5 (4, 5, 5, 5 and 7 mm), hepatic flexure x 1 (with adjacent tattoo and extending 30 to 35 mm long haustral fold and across 2 haustral folds encompassing one third the circumference of the colon?there was central depression/with some excavation without ulceration), transverse x 3 (5 and 6 mm and transverse #2 (17 mm with central depression/excavation)), descending x 1 (8 mm) and sigmoid x 1 (11 mm)). The smaller polyps were removed via cold snare polypectomy. The polyp at the hepatic flexure and the polyp labeled transverse #2 in the mid transverse colon both had superficial depression and excavation. Based upon these features, there was concern for cancer and NBI (narrowband imaging) was utilized. There was some loss of the normal vascular pattern and directed cold biopsies were taken from each of these more advanced polyps. The hepatic flexure polyp had been previously tattooed and the transverse polyp was also tattooed using spot ink. There were extensively scattered diverticuli throughout the descending and sigmoid colon (LEFT colon). The rectum itself was normal. Upon retroflexion within the rectum there were grade 2 internal hemorrhoids. The preparation was excellent throughout with [place] Preparation Score of 9. The cecal time was 19 minutes. Impression: 1. 30 to 35 mm hepatic flexure polyp and 17 mm mid transverse polyp both of which with some superficial central depression/excavation and concern for morphologic and NBI changes representing advanced pathology and possibly submucosal invasion of colon cancer 2. 9 additional polyps 3. Extensive left-sided diverticulosis 4. Grade 2 internal hemorrhoids Plan: I will follow-up the biopsies. I am concerned that there is morphologic/NBI changes in the 2 larger polyps that are of concern for advanced changes consistent with possible submucosal invasion and cancer. I will discuss findings with patient and family.
[2024-11-06 09:26] VITALS: BP 103/71; PULSE 80; RESP 18; TEMP 36.1; O2SAT 92
[2024-11-06 09:36] VITALS: BP 101/63; PULSE 75; RESP 18; O2SAT 95
[2024-11-06 09:46] VITALS: BP 111/70; PULSE 70; RESP 18; O2SAT 95
[2024-11-06 09:56] VITALS: BP 134/63; PULSE 68; RESP 18; O2SAT 97
[2024-11-06 10:26] VITALS: BP 138/79; PULSE 65; RESP 18; TEMP 36.1; O2SAT 96
== END 2024-11-06 10:26 | disposition home or self-care (01) ==
PROVIDERS: PCP Nurse Practitioner; Visit Provider Internal Medicine Gastroenterology
PROC: 0DJD8ZZ Inspection of Lower Intestinal Tract, Via Natural or Artificial Opening Endoscopic (ICD-10-PCS; CPT 45378; principal; 2024-11-06 09:00)
DX: Z12.11 Encounter for screening for malignant neoplasm of colon (principal); D12.2 Benign neoplasm of ascending colon; D12.4 Benign neoplasm of descending colon; D12.3 Benign neoplasm of transverse colon; D12.5 Benign neoplasm of sigmoid colon; K57.30 Diverticulosis of large intestine without perforation or abscess without bleeding; K64.1 Second degree hemorrhoids; F41.9 Anxiety disorder, unspecified; I10 Essential (primary) hypertension; F32.A Depression, unspecified; E11.9 Type 2 diabetes mellitus without complications; Z80.0 Family history of malignant neoplasm of digestive organs; F17.210 Nicotine dependence, cigarettes, uncomplicated; Z79.899 Other long term (current) drug therapy; Z79.84 Long term (current) use of oral hypoglycemic drugs; Z88.5 Allergy status to narcotic agent; Z88.8 Allergy status to other drugs, medicaments and biological substances
CPT/HCPCS: 45380; 45381; 45385; 82962; 88305; J2003; J2704; J7120

== ENCOUNTER 2025-02-01 07:31 | Day surgery (SDC) | payer MEDICARE, SELFPAY ==
--- NOTE | 2025-01-28 10:42 | EXP.HP ---
History of Present Illness *Admission Date: 02/01/25 *History of present illness: Mrs. Giles is a 69-year-old female who is here for screening/surveillance colonoscopy secondary to larger advanced adenomatous colon polyps. The patient did have a colonoscopy Ashish Jayjay Ngo in June 2024 because of a positive Cologuard and the patient did have some large advanced colon polyps. She underwent colonoscopy with on November 06, 2024 and had a 30 to 35 mm advanced adenoma at the hepatic flexure and a 17 mm mid transverse adenomatous polyp (removed). Biopsies of the hepatic flexure polyp showed adenoma without dysplasia. The transverse polyp was completely excised. There were 9 additional diminutive adenomatous polyps removed. The patient's father had colon cancer in his early 80s. The examination is deemed medically necessary for screening/surveillance colonoscopy. The patient has been seen, interviewed and examined prior to the procedure by both myself and the anesthesia provider. [facility] Disclaimer: The information contained in this section may have been updated after the patient was seen, as this information can be updated by other users. Medical History Adenomatous polyp of transverse colon Anxiety Hypertension Depression Diabetes Surgical History History of colonoscopy Family History Father Colon cancer Social History Smoking Status: Current every day smoker tobacco type: cigarettes packs per day: 1 second hand exposure: Yes alcohol intake: never substance use type: denies use current occupational status: employed Travel in the last 8 weeks?: None household members: spouse housing: house current occupational exposures/hazards: No caffeine: Yes Have you lived/traveled outside [place] in past 30 days?: No Contact w/someone who lives/traveled outside US past 30 days?: No Exposure to someone with infectious disease in past 14 days?: No Do you have a fever (greater than 100.4 F or 38 C)?: No Have you tested positive for COVID-19?: No Exposed to someone with COVID-19 in past 14 days?: No Do you have a sore throat?: No Do you have a cough?: No Do you have any weakness?: No Do you have any diarrhea?: No Are you experiencing any unusual bleeding?: No Do you have any muscle aches/pain?: No Do you have any abdominal pain?: No Are you experiencing loss of taste or smell?: No Other Medical History Have you received the Flu Vaccine for this season: Yes Have you received the Pneumonia Vaccine: No Review of Systems Review of Systems Review of systems (narrative): Negative *Cardiovascular Comments: Negative *Gastrointestinal Comments: Negative *Genitourinary Comments: Negative *Musculoskeletal Comments: Negative *Neurologic Comments: Negative Meds Home Medications and Allergies Home Medications ?Medication ?Instructions ?Recorded ?Confirmed ?Type atorvastatin 40 mg tablet (Lipitor) 40 mg PO DAILY Cholesterol 07/28/17 02/01/25 History metoprolol tartrate 25 mg tablet 25 mg PO BID blood pressure 07/28/17 02/01/25 History sertraline 50 mg tablet (Zoloft) 50 mg PO Q24H Depression 07/28/17 02/01/25 History alprazolam 0.5 mg tablet (Xanax) 0.5 mg PO BIDP PRN Anxiety 10/25/17 02/01/25 History metformin 500 mg tablet 500 mg PO DAILY Diabetes 08/09/19 02/01/25 History diclofenac sodium 1 % topical gel 4 g topical QID PRN pain 30 days 06/13/24 02/01/25 Rx #100 grams finerenone 10 mg tablet (Kerendia) 10 mg PO DAILY 07/11/24 02/01/25 History sodium,potassium,mag sulfates 17.5 See Rx Instructions PO .COMPLEX 01/15/25 01/30/25 Rx gram-3.13 gram-1.6 gram oral soln #354 mL (Suprep Bowel Prep Kit) fenofibrate nanocrystallized 145 145 mg PO DAILY 01/30/25 02/01/25 History mg tablet (Tricor) semaglutide 2 mg/dose (8 mg/3 mL) 2 mg SQ WEEKLY 01/30/25 02/01/25 History subcutaneous pen injector (Ozempic) New Prescriptions to Start Prescriptions: Allergies Allergy/AdvReac Type Severity Reaction Status Date / Time losartan AdvReac Intermediate Hypotension Verified 02/01/25 07:51 codeine AdvReac Nausea Verified 02/01/25 07:51 Exam *Routine HEENT Exam Head: Present normocephalic Eye: Present EOMI and PERRL ENT: Present mucous membranes moist *Routine Neck Exam Neck: Present supple *Routine Respiratory Exam Respiratory: Present CTA bilaterally *Routine Cardiovascular Exam Cardiovascular: Present RRR *Routine Abdominal Exam Abdominal: Present soft and normoactive bowel sounds; Absent tenderness *Routine Rectal Exam Rectal:: deferred *Routine Genitalia Exam Genitalia:: deferred *Routine Extremities Exam Extremities: Absent cyanosis, clubbing or edema *Routine Skin Exam Skin: Present warm; Absent rash *Routine Neurological Exam Neurological: Present alert and oriented X3 Assessment and Plan *Assessment and plan (1) Adenomatous polyp of transverse colon: Problem Comment: Larger advanced adenoma of the hepatic flexure Status: Acute Category: Medical Code(s): D12.3 - Benign neoplasm of transverse colon Plan A/P: 1. Large advanced adenoma of hepatic flexure/transverse colon is the preprocedural diagnosis. The patient will be anesthetized/sedated using MAC sedation. The patient has been seen and examined. Cardiac and lung assessment prior to the examination is stable. Proceed with planned screening/surveillance colonoscopy with plans of EMR removal.
[2025-01-30 10:03] VITALS: BMI 33.3
--- NOTE | 2025-02-01 06:45 | HMH.PROCNOTE ---
[facility] Procedure Note Date: 02/01/25 Time: 09:35 Procedure Note:: Colonoscopy Procedure Report: Colonoscopy with endoscopic mucosal resection (EMR with submucosal injection of Eleview and saline, cold snare polypectomy with complete resection and Endo Clip (Mantis clip x 2) polypectomy site closure Endoscopist: Matteo Ramos II, MD Referring physician: Laurel VERDE Date of Procedure: February 01, 2025 Equipment: Olympus [id number] adult colonoscope Sedation: MAC sedation Indication: Mrs. Giles is a 69-year-old female who is here for screening/surveillance colonoscopy secondary to larger advanced adenomatous colon polyps. The patient did have a colonoscopy Ashish Ro M.D. in June 2024 because of a positive Cologuard and the patient did have some large advanced colon polyps. She underwent colonoscopy with il on November 06, 2024 and had a 30 to 35 mm advanced adenoma at the hepatic flexure and a 17 mm mid transverse adenomatous polyp (removed). Biopsies of the hepatic flexure polyp showed adenoma without dysplasia. The transverse polyp was completely excised. There were 9 additional diminutive adenomatous polyps removed. The patient's father had colon cancer in his early 80s. The examination is deemed medically necessary for screening/surveillance colonoscopy. Procedure: Prior to the procedure, a history and physical exam was performed, and patient's medications and allergies were reviewed. The risks, benefits and alternatives of the sedation and procedure were discussed with the patient. All questions were answered and informed consent was obtained. The patient was brought to the procedure room. Patient identification and proposed procedure were verified by the physician and the nurse. The patient was placed in a left lateral decubitus position and the scope was passed under direct vision. Throughout the procedure, the patient's blood pressure, pulse, and oxygen saturations were monitored continuously. The colonoscopy was accomplished without difficulty. The patient tolerated the procedure well. Findings: On digital rectal examination there was normal rectal tone. There were no external hemorrhoids. The colonoscope was introduced through the anal canal to the rectum and advanced to the cecum. The ileocecal valve and appendiceal orifice were identified. The scope was advanced a short distance into the ileum which appeared grossly normal. The scope was then withdrawn into the colon. The large polyp at the hepatic flexure was initially identified and there was adjacent spot ink tattoo from prior colonoscopy (Ashish Ro M.D.). I did feel this may impair the left but I was able to inject 10 cc of Eleview and then another 10 cc of saline and lifted the polyp submucosally with the needle injector. This was a very flat polyp and felt best method of removal would be the sharper Exacto cold snare. I did a portion of the case under water because of visibility. The entire polyp was removed in several sections and the area was inspected carefully and there was no additional adenomatous polyp tissue remaining. This polyp was approximately 32 to 35 mm and after complete removal, 2 larger Mantis clips were placed over the polypectomy site for closure. There were 4 additional diminutive polyps (ascending x 1 (3 mm), transverse x 1 (4 mm), descending x 1 (5 mm) and sigmoid x 1 (3 mm)). These were all removed via cold snare polypectomy. The cecum, ascending and transverse colon and mucosa were grossly normal. There were scattered diverticuli throughout the descending and sigmoid colon (LEFT colon). The rectum itself was normal. Upon retroflexion within the rectum there were grade 1-2 internal hemorrhoids. The preparation was excellent throughout with [place] Preparation Score of 9. The cecal time was 20 minutes. Impression: 1. Large hepatic flexure polyp (32 to 35 mm laterally spreading granular adenoma across 2 haustral folds) status post EMR resection 2. Additional diminutive colonic polyps x 4 3. Left-sided diverticulosis 4. Grade 1-2 internal hemorrhoids Plan: I will follow-up the polyp histology and recommend repeat surveillance again at 6 months and then we will increase surveillance interval as long as there is no residual. I will discuss the findings with the patient and family.
[2025-02-01 07:53] VITALS: BP 146/104; PULSE 102; RESP 18; TEMP 36.6; O2SAT 96
--- NOTE | 2025-02-01 08:03 | EXP.ANES.CKL ---
[facility] Disclaimer: The information contained in this section may have been updated after the patient was seen, as this information can be updated by other users. Medical History Adenomatous polyp of transverse colon Anxiety Hypertension Depression Diabetes Surgical History History of colonoscopy Family History Father Colon cancer Social History Smoking Status: Current every day smoker tobacco type: cigarettes packs per day: 1 second hand exposure: Yes alcohol intake: never substance use type: denies use current occupational status: employed Travel in the last 8 weeks?: None household members: spouse housing: house current occupational exposures/hazards: No caffeine: Yes Have you lived/traveled outside US in past 30 days?: No Contact w/someone who lives/traveled outside US past 30 days?: No Exposure to someone with infectious disease in past 14 days?: No Do you have a fever (greater than 100.4 F or 38 C)?: No Have you tested positive for COVID-19?: No Exposed to someone with COVID-19 in past 14 days?: No Do you have a sore throat?: No Do you have a cough?: No Do you have any weakness?: No Do you have any diarrhea?: No Are you experiencing any unusual bleeding?: No Do you have any muscle aches/pain?: No Do you have any abdominal pain?: No Are you experiencing loss of taste or smell?: No [facility] Anesthesia Checklist Patient Identification Patient Identification: Arm Band Structural Data Admitted From: Home Planned Operative Procedure/s: Colonoscopy Consent for Planned Operative Procedure(s) Verified: Yes Verified Documents: Surgical Consent NPO Status Verified Time NPO: 00:00 Chart Verification Results Verified: None Additional verifications Anesthesia Reactions: No Hx Blood Transfusions: No Blood Transfusion Reaction: No Airway Assessment Mallampati Score:: Class II C-Spine Mobility Assessed: Yes TMJ Mobility Assessed: Yes Dentition: Good Dentition Neurological Assessment Level of Consciousness: Awake, Alert and Appropriate Hx Seizures: No Numbness or tingling in extremities: No Anesthesia Plan Anesthesia Risk discussed: Yes Anesthesia Plan: Verified ASA Class: II Anesthesia Type: MAC
[2025-02-01 08:04] LABS: POC Glucose,Bedside 103 gm/dL (70-110)
[2025-02-01] MEDS: LACTATED RINGERS 1000ML 1,000 ML 50 ML IV (08:07)
[2025-02-01 09:40] VITALS: BP 116/71; PULSE 79; RESP 20; TEMP 36.3; O2SAT 96
[2025-02-01 09:50] VITALS: BP 126/83; PULSE 76; O2SAT 97
[2025-02-01 10:00] VITALS: BP 143/86; PULSE 73; O2SAT 96
[2025-02-01 10:10] VITALS: BP 140/80; PULSE 71; O2SAT 96
== END 2025-02-01 10:10 | disposition home or self-care (01) ==
PROVIDERS: PCP Nurse Practitioner; Visit Provider Internal Medicine Gastroenterology
PROC: 0DJD8ZZ Inspection of Lower Intestinal Tract, Via Natural or Artificial Opening Endoscopic (ICD-10-PCS; CPT 45378; principal; 2025-02-01 09:00)
DX: D12.3 Benign neoplasm of transverse colon (principal); K57.30 Diverticulosis of large intestine without perforation or abscess without bleeding; K64.0 First degree hemorrhoids; K64.1 Second degree hemorrhoids; D12.2 Benign neoplasm of ascending colon; D12.4 Benign neoplasm of descending colon; D12.5 Benign neoplasm of sigmoid colon; K63.89 Other specified diseases of intestine; F41.9 Anxiety disorder, unspecified; F32.A Depression, unspecified; E11.9 Type 2 diabetes mellitus without complications; F17.210 Nicotine dependence, cigarettes, uncomplicated; I10 Essential (primary) hypertension; Z79.84 Long term (current) use of oral hypoglycemic drugs; Z79.899 Other long term (current) drug therapy; Z79.85 Long-term (current) use of injectable non-insulin antidiabetic drugs; Z88.8 Allergy status to other drugs, medicaments and biological substances; Z88.5 Allergy status to narcotic agent; Z86.0101 Personal history of adenomatous and serrated colon polyps; Z80.0 Family history of malignant neoplasm of digestive organs
CPT/HCPCS: 45381; 45385; 82962; 88305; C1760; J2003; J2704; J7120

== ENCOUNTER 2025-02-12 09:30 | Outpatient (CLI) | payer MEDICARE, SELFPAY ==
--- NOTE | 2025-02-12 09:33 | XR_ITS ---
FINAL REPORT CLINICAL HISTORY: SCREENING COMPARISON: None FINDINGS: Using L1-4, the bone mineral density of the spine is 1.265 g/cm2, corresponding to T-score of 2.0. Using the left hip, the bone mineral density of the femoral neck is 0.886 g/cm2, corresponding to a T-score of 0.3. Using the right hip, the bone mineral density of the femoral neck is 0.94 g/cm2, corresponding to a T-score of 0.9. NOTE: T-score: Standard deviation compared with peak bone mass of young adult mean. *Following the recommendations of the International Society of Bone densitometry, classification of hip BMD is based on the lower of two T-scores; total hip or femoral neck. IMPRESSION: Normal bone density of the lumbar spine and bilateral hips. Reviewed, Interpreted and Dictated by Steve Kovacs MD Transcribed by Lana Rush Authenticated and [facility]
== END 2025-02-12 23:59 | disposition home or self-care (01) ==
LOC: RAD 09:31
PROVIDERS: PCP Nurse Practitioner; Visit Provider Nurse Practitioner
DX: Z13.820 Encounter for screening for osteoporosis (principal)
CPT/HCPCS: 77080